=== PATIENT | female | born 1990 | race Caucasian/White ===

== ENCOUNTER 2024-05-02 08:42 | Outpatient (AMB) | payer OTHER, SELFPAY ==
--- NOTE | 2024-05-02 09:16 | AM.OFFWIN_ITS ---
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 Patient Tobacco Use Status: Current everyday Tobacco user Allergies acyclovir [From ZOVIRAX] Allergy (Mild, Unverified 05/02/24 09:16) FACIAL NUMBNESS bee pollen [BEE STINGS] Allergy (Mild, Unverified 05/02/24 09:16) SWELLING black pepper [BLACK PEPPER] Allergy (Unknown, Unverified 05/02/24 09:16) UNKNOWN Do you need a note to return to daycare/school/sports/work: No HPI HPI Comments History of Present Illness Details 33 y/o female patient who presents to [facility] in clinic with c/o URI symptoms since Monday. [facility] Social History Patient Tobacco Use Status: Current everyday Tobacco user Review of Systems Const All systems reviewed & are unremarkable except as noted in HPI and below Physical Exam Vital Signs: Last Vital Signs Temp 98.1 F 05/02/24 09:17 Pulse 91 05/02/24 09:17 BP 140/90 H 05/02/24 09:17 Pulse Ox 96 05/02/24 09:17 Oxygen Delivery Method Room Air 05/02/24 09:17 BMI result Body Mass Index 48.5 Const General: no acute distress Nutritional Appearance: obese Orientation/consciousness: patient oriented x3 HEENT Head: Yes normocephalic Ears: external ears normal and TM's normal bilaterally General nose exam: Normal nasal mucous membranes and turbinates present Face and sinus: Yes sinuses nontender Mouth: moist mucous membranes Throat: Yes posterior oropharynx normal Resp Effort & Inspection: Actively coughing Auscultation: no crackles, no rales, no rhonchi and wheezes Cardio Heart sounds: S1 normal heart sound present and S2 normal heart sound present Neuro General: patient oriented x3 Assessment & Plan Assessment & Plan (1) URI, acute: Code(s): J06.9 - Acute upper respiratory infection, unspecified Plan: Hydrate well Rest Acetaminophen for pain relief Continue using Albuterol PRN Prescribed Abx and Prednisone (2) Asthma exacerbation: Code(s): J45.901 - Unspecified asthma with (acute) exacerbation Qualifiers: Asthma persistence: persistent Asthma severity: mild Qualified Code(s): J45.31 - Mild persistent asthma with (acute) exacerbation Plan: Hydrate well Rest Acetaminophen for pain relief Continue using Albuterol PRN Prescribed Abx and Prednisone Plan Hydrate well Rest Acetaminophen for pain relief Continue using Albuterol PRN Prescribed Abx and Prednisone Medications: New azithromycin 500 mg PO DAILY 3 tabs 0RF 3 days J06.9 - Acute upper respiratory infection, unspecified, J45.31 - Mild persistent asthma with (acute) exacerbation albuterol sulfate 0.63 mg (3 mL) inhalation Q4-6H PRN 90 mL 0RF shortness of breath or wheezing J06.9 - Acute upper respiratory infection, unspecified, J45.31 - Mild persistent asthma with (acute) exacerbation prednisone 50 mg PO DAILY 5 tabs 0RF 5 days J06.9 - Acute upper respiratory infection, unspecified, J45.31 - Mild persistent asthma with (acute) exacerbation Coding Level of Care Code Est Pt Level 4 (13924) Diagnoses URI, acute J06.9 Mild persistent asthma with exacerbation J45.31 Asthma persistence: persistent Asthma severity: mild Time Spent (min) 20
[2024-05-02 09:17] VITALS: BP 140/90; PULSE 91; TEMP 36.7; O2SAT 96; BMI 48.5
== END 2024-05-02 09:47 | disposition home or self-care (01) ==
PROVIDERS: PCP Internal Medicine Geriatric Medicine; Visit Provider Nurse Practitioner Family
DX: J06.9 Acute upper respiratory infection, unspecified (principal); J45.31 Mild persistent asthma with (acute) exacerbation

== ENCOUNTER → 2024-05-02 08:42 | Outpatient (BNVA) | payer OTHER, SELFPAY | PROVIDERS: PCP Internal Medicine Geriatric Medicine; Visit Provider Nurse Practitioner Family | DX: J06.9 Acute upper respiratory infection, unspecified (principal); J45.31 Mild persistent asthma with (acute) exacerbation | CPT/HCPCS: 99212 ==

== ENCOUNTER 2024-06-28 08:43 | Outpatient (REF) | payer OTHER, SELFPAY ==
--- OUTSIDE RECORDS SUMMARY | 2024-06-28 11:15 | XMS_ITS | Clinical Summary ---
Author Organization [facility] Address [address] [place] [address] Care Team Providers Care Composition Board Press Operator Name Role Phone Irma Mcclendon MD Primary Care Provider [phone] Allergies Active Allergy Reactions Criticality Noted Date [...] 1 Active blood-glucose meter (FREESTYLE LITE METER [facility]) 1 Active blood sugar diagnostic (FreeStyle Lite Strips) test strip [address] [facility] 1 Active fluticasone propionate (FLONASE) 50 mcg/actuation [...] Anxiety 12/01/2008 Overview (04/13/2024): Patient follows at [facility]. Also has depression. Seasonal allergies 08/29/2008 Immunizations Name Administration Dates Next Due DTP 07/16/1994, 1,1989,11/15,1989 [id number] (Pentacel) 2mo to less than 5yo 03/23/1990 [...] TONSILLECTOMY ADENOIDECTOMY, BILATERAL MYRINGOTOMY AND TUBES PROCEDURE: [place] TONSILLECTOMY & ADENOIDECTOMY <AGE 12 Medical History [...] state, unspecified; COMMENT: no meds Morbid obesity ([facility] August 2010 DX:Morb id obesity ([facility]); COMMENT: BMI 49.9 Tobacco abuse DX:Tobacco [...] Health Maintenance Results * HIV Screening (02/07/2020) [facility] HIV Screening abstracted [facility] Provider HEALTH MAINTENANCE Final Result * Hepatitis C Screening (02/07/2020) [facility] Hepatitis C Screening abstracted [facility] Provider HEALTH MAINTENANCE Final Result * Cervical Cancer Screening: HPV (10/04/2019) [facility] Cervical Cancer Screening: HPV abstracted, negative [facility] Provider HEALTH MAINTENANCE Final Result * (ABNORMAL) Lipid panel (03/17/2012) [facility] LDL/HDL Ratio 6(A) 0 - 4 Triglycerides 119 0 - 150 mg/dL Cholesterol 229(A) 0 - 200 mg/dL HDL 40 >=40 mg/dL LDL Cholesterol 166(A) 0 - 100 mg/dL Blood Venous blood specimen / Unknown Result [facility] Provider LAB BLOOD ORDERABLES Tatiana l Result from Last 3 Months or Most Recently Relevant to Health Maintenance Care Teams Composition Board Press Operator Relationship Specialty Start Date End Date Irma Mcclendon MD [address] [place] [id number] PCP - General Internal Medicine 03/30/21
[2024-06-28 11:19] LABS: Influenza A PCR NEGATIVE (Negative); Influenza B PCR NEGATIVE (Negative); Resp Syncy Virus RNA Qual PCR NEGATIVE (Negative); SARS COV2 PCR INHOUSE NEGATIVE (Negative)
== END 2024-06-28 08:44 | disposition home or self-care (01) ==
LOC: HO.CHCLNP 08:43
PROVIDERS: PCP Internal Medicine Geriatric Medicine; Visit Provider Physician Assistant Medical
DX: J06.9 Acute upper respiratory infection, unspecified (principal); J45.909 Unspecified asthma, uncomplicated; H66.90 Otitis media, unspecified, unspecified ear
CPT/HCPCS: 0241U; 99212

== ENCOUNTER 2024-06-28 08:43 | Outpatient (AMB) | payer OTHER, SELFPAY ==
--- NOTE | 2024-06-28 08:55 | MHC.OFFWIV ---
Intake Vital Signs 06/28/24 08:56 Weight 321 lb BP 136/80 Blood Pressure Location Lt brachial Position Sitting Pulse 85 Pulse Source Pulse Oximeter Temp 98.1 F Temp Source Oral Pulse Oximetry (%) 93 Oxygen Delivery Method Room Air Intake Visit Reasons: EP exposed to flu, flu symptoms Intake Note: Patient here for cough, headaches, SOB that started last . Patient Tobacco Use Status: Current everyday Tobacco user Allergies acyclovir [From ZOVIRAX] Allergy (Mild, Unverified 06/28/24 08:56) FACIAL NUMBNESS bee pollen [BEE STINGS] Allergy (Mild, Unverified 06/28/24 08:56) SWELLING black pepper [BLACK PEPPER] Allergy (Unknown, Unverified 06/28/24 08:56) UNKNOWN Do you need a note to return to daycare/school/sports/work: No HPI HPI Comments History of Present Illness Details This is a 33-year-old female who presented to the walk-in clinic with her complaining of flu-like symptoms. Patient and her state that their 3-year-old twins were recently diagnosed with influenza A, a double ear infection, and pneumonia. Patient has been experiencing flu-like symptoms including nasal/sinus congestion, rhinorrhea, fever/chills, cough, sore throat, bilateral otalgia, wheezing, and mild shortness of breath for the past 9-10 days. Patient has been using [id number]-ectafer cold and flu medications as well as her rescue inhaler without significant relief. PFSH Social History Patient Tobacco Use Status: Current everyday Tobacco user Review of Systems Const All systems reviewed & are unremarkable except as noted in HPI and below Reports no additional complaints Eyes Reports no additional complaints ENT Reports no additional complaints Card Reports no additional complaints Resp Reports no additional complaints GI Reports no additional complaints Reports no additional complaints Musc Reports no additional complaints Skin/Breast Reports system reviewed and no additional complaints, except as documented Neuro Reports no additional complaints Psych Reports no additional complaints Endo Reports no additional complaints Rommel/Lymph Reports no additional complaints Aller/Immun Reports no additional complaints Physical Exam Vital Signs: Last Vital Signs Temp 98.1 F 06/28/24 08:56 Pulse 85 06/28/24 08:56 BP 136/80 06/28/24 08:56 Pulse Ox 93 06/28/24 08:56 Oxygen Delivery Method Room Air 06/28/24 08:56 Const Other: Vital signs reviewed. Constitutional: Non-toxic appearing. No acute distress. Well-developed and well-nourished. HEENT: Normocephalic and atraumatic. Her bilateral tympanic membranes are erythematous and edematous with loss of landmarks and fluid behind tympanic membranes. External auditory canals without erythema or edema bilaterally. Moist mucous membranes. Mild posterior pharyngeal erythema without exudates. Skin: Warm and dry. No rashes or lesions noted. Neck: Full and painless range of motion. No cervical lymphadenopathy. Cardio: Regular rate and rhythm. No murmurs, gallops, or rubs. No lower extremity edema. No JVD. Pulmonary: No respiratory distress. No accessory muscle usage. Scant end expiratory wheezing without crackles or rhonchi. Gastrointestinal: Soft, nontender, and nondistended in all 4 quadrants. Musculoskeletal: Normal range of motion in joints throughout the body. No deformity or other signs of injury. Neuro: Alert and oriented x4. Cranial nerves 2-12 grossly intact. No focal deficits appreciated. Psych: Normal mood and affect. Assessment & Plan Assessment & Plan (1) Acute asthmatic bronchitis: Code(s): J45.909 - Unspecified asthma, uncomplicated (2) Acute otitis media: Code(s): H66.90 - Otitis media, unspecified, unspecified ear Plan This is a 33-year-old female who presented to the walk-in clinic with her complaining of flu-like symptoms. On physical examination, she is erythema, edema, and bulging of bilateral tympanic membranes with loss of landmarks and fluid pt tympanic membranes as well as scattered end expiratory wheezing. History and physical most consistent with acute asthmatic bronchitis and acute otitis media and patient very likely has an acute upper/lower respiratory tract infection, possibly viral turn bacterial given duration of symptoms. Patient was given a prescription for p.o. prednisone 40 mg daily x5 days as well as p.o. doxycycline 100 mg twice daily x5 days (due to amoxicillin/penicillin intolerance - GI upset). Recommended symptomatic management including rest, increased fluids, advil/tylenol for pain/fever, and over the counter throat lozenges/decongestants. COVID/RSV/FLU testing sent. Patient advised to follow up here or go to the emergency room for worsening/persistent symptoms. Patient verbalized understanding and is agreeable with the plan. Orders: Orders SARS-CoV2/FLU/RSV Today J06.9 - Acute upper respiratory infection, unspecified Medications: New prednisone 40 mg (2 x 20 mg) PO DAILY 10 tabs 0RF doxycycline hyclate 100 mg PO BID 10 tabs 0RF Coding Level of Care Code Est Pt Level 3 (78968) Diagnoses Acute asthmatic bronchitis J45.909 Acute otitis media H66.90
[2024-06-28 08:56] VITALS: BP 136/80; PULSE 85; TEMP 36.7; O2SAT 93
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
== END 2024-06-28 09:49 | disposition home or self-care (01) ==
PROVIDERS: PCP Internal Medicine Geriatric Medicine; Visit Provider Physician Assistant Medical
DX: J45.909 Unspecified asthma, uncomplicated (principal); H66.90 Otitis media, unspecified, unspecified ear

== ENCOUNTER 2024-07-03 08:47 | Outpatient (AMB) | payer OTHER, SELFPAY ==
[2024-07-03 08:59] VITALS: BP 118/76; PULSE 112; TEMP 37.1; O2SAT 98; BMI 50.5
--- NOTE | 2024-07-03 08:59 | AM.OFFWIN_ITS ---
Intake Vital Signs 07/03/24 08:59 Height 5 ft 7 in Weight 322 lb 8 oz BMI 50.5 BP 118/76 Blood Pressure Location Lt brachial Position Sitting Pulse 112 H Pulse Source Pulse Oximeter Temp 98.7 F Temp Source Oral Pulse Oximetry (%) 98 Oxygen Delivery Method Room Air Intake Visit Reasons: EP [place] eye + flu symptoms worse/throat pain Intake Note: Pt presents to the office today for c/o bilateral pink eye and throat pain x4 days. Patient Tobacco Use Status: Current everyday Tobacco user Allergies acyclovir [From ZOVIRAX] Allergy (Mild, Unverified 07/03/24 09:02) FACIAL NUMBNESS bee pollen [BEE STINGS] Allergy (Mild, Unverified 07/03/24 09:02) SWELLING black pepper [BLACK PEPPER] Allergy (Unknown, Unverified 07/03/24 09:02) UNKNOWN HPI HPI Comments History of Present Illness Details History - The patient is a 33 year old female pr esenting with eye symptoms and sore throat. - Ocular symptomatology started with cru sting in the eyes on Monday morning and persisted for the last four days. The eyes crust shut in the morning, and there is night-time blurring of vision. The patient used previously prescribed eye drops for her daughter without resolution, (polymyxin B). No contact lenses are used. - After completing a Doxycycline course for double ear infections and early pneumonia, a sore throat developed, accompanied by severe pain, especially upon swallowing and speaking. The flu/COVID/RSV tests conducted last week were negative. - The patient lives with her three child aleksey but reports no exposure to known cases of strep throat. Physical Exam General: Cooperative, healthy appearing, comfortable and no acute distress Orientation/consciousness: Patient oriented x3 Limitations: No limitations Head: Normal to inspection Ears: Hearing grossly normal bilaterally, EAC with some erythema, but tympanic membranes normal bilaterally Nose: Normal external nose present, Normal nares present and No nasal discharge present Face and sinus: Normal facial exam and Yes sinuses nontender Mouth: Normal oral and palatal mucosa present and moist mucous membranes Throat: Yes tonsils normal, Yes uvula midline. Posterior oropharynx erythema, no exudates Eyes: Appearance abnormal, yellow/green crusting on bilateral upper and lower eyelids, conjunctival injection bilaterally Neck: Normal visual inspection, lymph nodes swollen Respiratory: Normal respiratory effort, able to speak in complete sentences, no respiratory distress, not tachypneic, no tripod positioning and no use of accessory muscles Skin: No rashes or lesions noted Neuro: Patient oriented x3 Extremities: Normal to inspection and Yes no clubbing, cyanosis or edema PFSH Social History Patient Tobacco Use Status: Current everyday Tobacco user Review of Systems Const All systems reviewed & are unremarkable except as noted in HPI and below Physical Exam Vital Signs: Last Vital Signs Temp 98.7 F 07/03/24 08:59 Pulse 112 H 07/03/24 08:59 BP 118/76 07/03/24 08:59 Pulse Ox 98 07/03/24 08:59 Oxygen Delivery Method Room Air 07/03/24 08:59 BMI result Body Mass Index 50.5 Results AMB Rapid Strep AMB Rapid Strep Negative Last Edit by Connie Perdomo CMA on 07/03/24 09:12 Results Reviewed Results Reviewed: Laboratory Last Values Strep Scn Rapid Clinic Negative 07/03/24 09:12 Assessment & Plan Assessment & Plan (1) Bacterial conjunctivitis of both eyes: Code(s): H10.9 - Unspecified conjunctivitis; B96.89 - Other specified bacterial agents as the cause of diseases classified elsewhere Plan: For the viral conjunctivitis, initiate Ciprofloxacin eye drops as prescribed. Patient was informed and verbally consented to the use of an ambient scribe for clinic note documentation during this visit (2) Viral pharyngitis: Code(s): J02.9 - Acute pharyngitis, unspecified Plan: Flu, covid and rsv neg 4 days ago. Rapid strep negative today. likely viral pharyngitis as pt just finished 5day course of Doxycycline. Administer Flonase nasal spray properly for drainage and inflammation management, and consider using ibuprofen alongside increased hydration to address throat pain and promote recovery from viral pharyngitis. Explaining how drainage may cause prolongation of symptoms has allowed the patient to understand this situation. Gargling salt water should provide additional throat relief. Explore pharmacy options for insurance coverage of Flonase, potentially requiring a 90-day prescription supply. Advise on [id number] throat-numbing sprays for symptomatic pain relief, noting patient understanding of possibilities and side effects. Encourage increased fluid consumption to help clear infection and mitigate inflammation. Orders: Orders AMB Rapid Strep Screen Today Z13.9 - Encounter for screening, unspecified Medications: New ciprofloxacin HCl 0.3% put 1-2 drps in both eye(s) every 2hr up to 8 times/day x2days; then 4 times/day x5days ophthalmic (eye) 10 mL 0RF fluticasone propionate 50 mcg/actuation administer into each nostril 1 spray intranasal Q12H 90 days PRN 16 grams 0RF nasal congestion Coding Level of Care Code New Pt Level 3 (91455) Diagnoses Bacterial conjunctivitis of both eyes H10.9; B96.89 Viral pharyngitis J02.9
--- OUTSIDE RECORDS SUMMARY | 2024-07-03 09:38 | XMS_ITS | Clinical Summary ---
Author Organization [facility] Address [address] [place] [address] Care Team Providers Care Sofa Inspector Name Role Phone Irma Mcclendon MD Primary Care Provider [phone] Allergies Active Allergy Reactions Criticality Noted Date [...] 1 Active blood-glucose meter (FREESTYLE LITE METER [facility]) 1 Active blood sugar diagnostic (FreeStyle Lite Strips) test strip 1 [facility] 1 Active fluticasone propionate (FLONASE) [...] Anxiety 12/01/2008 Overview (04/13/2024): Patient follows at [facility]. Also has depression. Seasonal allergies 08/29/2008 Immunizations Name Administration Dates Next Due DTP 07/16/1994, 1,1989,11/15,1989 [id number] (Pentacel) 2mo to less than 5yo 03/23/1990 [...] TONSILLECTOMY ADENOIDECTOMY, BILATERAL MYRINGOTOMY AND TUBES PROCEDURE: [place] TONSILLECTOMY & ADENOIDECTOMY <AGE 12 Medical History [...] state, unspecified; COMMENT: no meds Morbid obesity ([facility]) August 2010 DX:Morb id obesity ([facility]); COMMENT: BMI 49.9 Tobacco abuse DX:Tobacco abuse [...] Health Maintenance Results * HIV Screening (02/07/2020) [facility] HIV Screening abstracted [facility] Provider HEALTH MAINTENANCE Final Result * Hepatitis C Screening (02/07/2020) [facility] Hepatitis C Screening abstracted [facility] Provider HEALTH MAINTENANCE Final Result * Cervical Cancer Screening: HPV (10/04/2019) [facility] Cervical Cancer Screening: HPV abstracted, negative [facility] Provider HEALTH MAINTENANCE Final Result * (ABNORMAL) Lipid panel (03/17/2012) [facility] LDL/HDL Ratio 6(A) 0 - 4 Triglycerides 119 0 - 150 mg/dL Cholesterol 229(A) 0 - 200 mg/dL HDL 40 >=40 mg/dL LDL Cholesterol 166(A) 0 - 100 mg/dL Blood Venous blood specimen / Unknown Result [facility] Provider LAB BLOOD ORDERABLES Tatiana l Result from Last 3 Months or Most Recently Relevant to Health Maintenance Care Teams Sofa Inspector Relationship Specialty Start Date End Date Irma Mcclendon MD [address] [place] [id number] PCP - General Internal Medicine 03/30/21
== END 2024-07-03 09:37 | disposition home or self-care (01) ==
PROVIDERS: PCP Internal Medicine Geriatric Medicine; Visit Provider Physician Assistant
DX: H10.9 Unspecified conjunctivitis (principal); B96.89 Other specified bacterial agents as the cause of diseases classified elsewhere; J02.9 Acute pharyngitis, unspecified; Z13.9 Encounter for screening, unspecified

== ENCOUNTER → 2024-07-03 08:47 | Outpatient (BNVA) | payer OTHER, SELFPAY | PROVIDERS: PCP Internal Medicine Geriatric Medicine; Visit Provider Physician Assistant | DX: H10.9 Unspecified conjunctivitis (principal); B96.89 Other specified bacterial agents as the cause of diseases classified elsewhere; J02.9 Acute pharyngitis, unspecified | CPT/HCPCS: 87880; 99202 ==